=== PATIENT | female | born 1940 | race Caucasian/White ===

== ENCOUNTER 2017-03-09 13:39 | Observation (INO) | payer MEDICARE, OTHER ==
[~2017-03-09] VITALS: Ht 160 cm; Wt 70.0 kg
[~2017-03-09 13:39] MED LIST: ARICEPT5 MG PO; CEFDINIR300 MG PO; CHILDRENS CHEWA81 MG PO; FEOSOL325 MG PO; GLUCOPHAGE500 MG PO; GLUCOTROL5 MG PO; JANUVIA100 MG PO; LIPITOR10 MG PO; LYRICA200 MG PO; MAGNESIUM OXID400 MG PO; METOPROLOL TART25 MG PO; REQUIP1 MG PO; ZITHROMAX250 MG PO
[2017-03-09 13:58] LABS: BASO % 0.6 % (0.1-1.2); EOS # 0.2 10_X3_uL (0.0-0.4); EOS % 4.4 % (0.7-5.8); GRAN # 3.2 10_X3_uL (1.6-6.1); GRAN % 66.9 % (34.0-71.1); HEMATOCRIT 31.5 % (34-45); HEMOGLOBIN 10.2 g/dL (11.2-15.7); LYMPH % 21.4 % (19.3-51.7); MEAN CORPUSCULAR HEMOGLOBIN 30.4 pg (27.0-33.0); MEAN CORPUSCULAR HGB CONC 32.4 g/dL (32.0-36.0); MEAN CORPUSCULAR VOLUME 93.8 fL (79-95); MEAN PLATELET VOLUME 8.4 fl (7.5-11.5); MONO # 0.3 10_X3_uL (0.2-0.9); MONO % 6.7 % (4.7-12.5); PLATELET COUNT 157 x10_3/uL (182-369); RED BLOOD COUNT 3.36 x10_6/uL (3.9-5.2); RED CELL DISTRIBUTION WIDTH 13.6 % (11.7-14.4); WHITE BLOOD COUNT 4.8 x10_3/uL (4.0-10.0)
[2017-03-09 14:10] LABS: ALBUMIN 4.2 gm/dL (3.4-5.0); ALKALINE PHOSPHATASE 69 U/L (50-136); ALT/SGPT 9 U/L (3.5-33.9); AST/SGOT 15 U/L (7.04-26.96); BILIRUBIN,TOTAL 0.51 mg/dL (0.0-1.0); BLOOD UREA NITROGEN 21 mg/dL (7-18); CALCIUM 8.5 mg/dL (8.7-10.7); CARBON DIOXIDE 23 mmol/L (21-32); CREATININE 0.9 mg/dL (0.6-1.3); GLUCOSE,RANDOM 183 mg/dL (70-99); POTASSIUM 5.2 mmol/L (3.5-5.1); SODIUM 141 mmol/L (136-145); TOTAL PROTEIN 6.6 gm/dL (6.4-8.2)
[2017-03-09 22:31] LABS: PARTIAL THROMBOPLASTIN TIME 25.4 SECONDS (21.8-28.4); PROTHROMBIN TIME (PATIENT) 10.5 SECONDS (9.6-10.8)
[2017-03-09 22:33] LABS: CKMB 2.2 ng/ml (0.0-5.0); TROP-I < 0.30 NG/ML (0.00-0.30)
[2017-03-10 05:11] LABS: CKMB 1.7 ng/ml (0.0-5.0)
[2017-03-10 05:16] LABS: TROP-I < 0.30 NG/ML (0.00-0.30)
[2017-03-10 11:02] LABS: CKMB 2.1 ng/ml (0.0-5.0)
[2017-03-10 11:10] LABS: TROP-I < 0.30 NG/ML (0.00-0.30)
== END 2017-03-10 14:45 | disposition home or self-care (01) ==
LOC: ER 13:39 → MS 17:20 → UNDODEPER 03-13 08:55
PROVIDERS: General Practice; ADMIT Family Medicine
DX: R07.89 Other chest pain (principal); E11.40 Type 2 diabetes mellitus with diabetic neuropathy, unspecified; R42 Dizziness and giddiness; M54.9 Dorsalgia, unspecified; G25.81 Restless legs syndrome; I25.10 Atherosclerotic heart disease of native coronary artery without angina pectoris; K59.00 Constipation, unspecified; Z79.82 Long term (current) use of aspirin; Z79.84 Long term (current) use of oral hypoglycemic drugs; Z79.899 Other long term (current) drug therapy; Z95.5 Presence of coronary angioplasty implant and graft
CPT/HCPCS: 36415; 71010; 71250; 71260; 80053; 80061; 82550; 82553; 82962; 83036; 84132; 85025; 85379; 85610; 85730; 93005; 93041; 93306; 99070; 99284; 99285-25; G0378; J7040; Q9967